=== PATIENT | female | born 2000 | race Caucasian/White ===

== ENCOUNTER 2021-04-11 11:47 | Emergency (ER) | payer OTHER ==
[~2021-04-11] VITALS: Ht 172.7 cm; Wt 70.5 kg
[2021-04-11 12:05] VITALS: TEMP 99.1
[2021-04-11] MEDS ORDERED: MILI 0.25-0.031 EACH PO (12:09)
[2021-04-11 14:39] LABS: BASO # 0.1 (0.0-0.2); BASO % 0.7 % (0.0-2.0); GRAN # 7.1 (1.4-6.5); GRAN % 77.5 % (42.2-75.2); HEMATOCRIT 39.2 % (37.0-47.0); HEMOGLOBIN 13.7 g/dl (12.5-16.0); LYMPH # 1.7 (1.2-3.4); LYMPH % 18.5 % (20.0-51.0); MEAN CELL VOLUME 86 fl (80.0-100.0); MEAN CORPUSCULAR HEMOGLOBIN 30 pg (27.0-31.0); MEAN CORPUSCULAR HGB CONC 35 g/dl (33.0-37.0); MEAN PLATELET VOLUME 9.6 fl (7.4-10.4); MONO # 0.3 (0.1-0.6); PLATELET COUNT 337 K/mm3 (130-400); RED BLOOD COUNT 4.54 M/mm3 (4.10-5.30); REDCELL DISTRIBUTION WIDTH-CV 11.8 % (11.5-14.5)
[2021-04-11 14:50] LABS: ALANINE AMINOTRANSFERASE 17 U/L (4-34); ALKALINE PHOSPHATASE 62 U/L (50-136); ANION GAP 13 mmol/L (7-16); AST,SGOT 29 U/L (15-37); BILIRUBIN,TOTAL 0.5 mg/dL (0.0-1.0); BLOOD UREA NITROGEN 13 mg/dL (7-17); CALCIUM 9.6 mg/dL (8.4-10.2); CARBON DIOXIDE 20 mmol/L (22-30); CHLORIDE 105 mmol/L (98-107); GLUCOSE 104 mg/dL (74-106); POTASSIUM 3.8 mmol/L (3.4-5.0); SODIUM 138 mmol/L (137-145); TOTAL PROTEIN 8.9 gm/dL (6.4-8.2)
[2021-04-11 15:29] LABS: TROPONIN-I < 0.012 ng/mL (0.000-0.035)
[2021-04-11 16:16] VITALS: BP 121/81; PULSE 82
== END 2021-04-11 16:17 | disposition home or self-care (01) ==
LOC: COL.ER 11:47
PROVIDERS: Physician Assistant
DX: R07.89 Other chest pain (principal); M54.6 Pain in thoracic spine; R79.1 Abnormal coagulation profile
CPT/HCPCS: J1885; Q9967

== ENCOUNTER → 2021-04-11 | Outpatient (CLI) | payer OTHER ==
[~2021-04-11] MED LIST: MILI 0.25-0.031 EACH PO
== END ==
LOC: COL.LAB 10:16
DX: R07.9 Chest pain, unspecified (principal)